=== PATIENT | female | born 1990 | race Caucasian/White ===

== ENCOUNTER 2017-06-18 17:49 | Emergency (ER) | payer BC ==
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
--- NOTE | 2017-06-19 08:53 | RADIOLOGY REPORT ---
EXAM: LEFT ANKLE HISTORY: DIRECT BLOW TO THE LATERAL SIDE OF THE LEFT ANKLE YESTERDAY. LEFT ANKLE PAIN. TECHNIQUE: Three views of the left ankle were obtained. Comparison: None. Encounter: Initial. FINDINGS: The bones are intact. There is no acute fracture or dislocation. No significant soft tissue swelling is identified. IMPRESSION: NO ACUTE FRACTURE IDENTIFIED. JOB NUMBER: [id number] MTDD
== END 2017-06-18 19:02 | disposition home or self-care (01) ==
LOC: ER 17:49
DX: S90.02XA Contusion of left ankle, initial encounter (principal); W50.1XXA Accidental kick by another person, initial encounter
CPT/HCPCS: 99283